=== PATIENT | female | born 1965 | race Caucasian/White ===

== ENCOUNTER 2016-08-03 09:09 | Emergency (ER) ==
[2016-08-03 09:22] VITALS: BP 132/76; TEMP 97.5; BMI 41.7
--- NOTE | 2016-08-03 09:51 | DI ---
EXAM: Three views of the right ankle. History: Right ankle trauma. Findings: No acute fracture or dislocation. Subcutaneous edema at the ankle. Atherosclerotic vasc ular calcifications. Dorsal soft tissue swelling over the forefoot. Enthesiopathy at the insertion of the Achilles tendon. Mild polyarticular joint space narrowing. Impression: No acute osseous abnormality. Other findings as detailed above.
--- NOTE | 2016-08-03 09:52 | DI ---
EXAM: Four views of the left knee. History: Left knee pain and trauma. Findings: No acute fracture or dislocation. Moderate to severe narrowing of the medial compartment . Moderate narrowing of the patellofemoral compartment. Mild to moderate narrowing of the lateral compartment. There are osteophytes. Impression: No acute osseous abnormality. Osteoarthritis.
--- NOTE | 2016-08-03 09:54 | DI ---
EXAM: Three views of the right foot. History: Right foot pain and trauma. Findings: No acute fracture or dislocation. Subcutaneous edema. Enthesiopathy at the insertion of the Achilles tendon. Mild polyarticular joint space narrowing. Os naviculare. Impression: No acute osseous abnormality.
--- NOTE | 2016-08-03 10:01 | ED.PDOC ---
General ED Provider: Dr. RUFINO SIU JR Chief Complaint: Fall Stated Complaint: left knee gave out causing fall indoors--did not strike head with fall--caught self with arms outstretched--has pain ro right ankle and left knee. [ End ] Time Seen by Physician: 09:00 Mode of Arrival: Walk-In Information Source: Patient Exam Limitations: No limitations Primary Care Provider: MARBIN BRADFORD Nursing and Triage Documentation Reviewed and Agree: No Review of Systems - Review Of Systems Constitutional: Reports: No symptoms Eyes: Reports: No symptoms Ears, Nose, Mouth, Throat: Reports: No symptoms Respiratory: Reports: No symptoms Cardiac: Reports: No symptoms GI: Reports: No symptoms : Reports: No symptoms Musculoskeletal: Reports: Joint pain Skin: Reports: No symptoms Neurological: Reports: Other Endocrine: Reports: No symptoms Hematologic/Lymphatic: Reports: No symptoms All Other Systems: Other Past Medical History - Past Medical History Previously Healthy: No Endocrine: Reports: DM 2, Dyslipidemia Cardiovascular: Reports: Hypertension Respiratory: Reports: None Hematological: Reports: None Gastrointestinal: Reports: None Genitourinary: Reports: None Neuro/Psych: Reports: None Musculoskeletal: Reports: Joint Pain Cancer: Reports: None Last Menstrual Period: menopause - Surgical History General Surgical History: Reports: Unknown - Family History Family History: Reports: Unknown - Social History Smoking Status: Current every day smoker Hx Substance Use: No Alcohol Screening: None Physical Exam - Physical Exam Appearance: Well-appearing, Obese Pain Distress: Moderate Neck: Supple Respiratory: Airway patent Musculoskeletal: Normal strength, ROM intact, Edema (right ankle consistent with trauma) Skin: Warm, Dry (note dorsal turquoise color denies ink) Neurological: Sensation intact, Motor intact, Reflexes intact, Cranial nerves intact, Alert, Oriented Psychiatric: Affect appropriate, Mood appropriate Critical Care Note - Critical Care Note Total Time (mins): 0 Course - Course Orders, Labs, Meds: Orders Category Date Time Status CRUTCHES [ED CRUTCHES] .ONCE EMERGENCY 08/03/16 10:01 Active ED KOKI WRAP .ONCE EMERGENCY 08/03/16 10:01 Active ANKLE, RIGHT MIN 3 VIEWS Stat RADS 08/03/16 09:16 Completed FOOT, RIGHT 3 VIEWS Stat RADS 08/03/16 09:16 Completed KNEE, LEFT 4 VIEWS Stat RADS 08/03/16 09:16 Completed Vital Signs: Temp Pulse Resp BP Pulse Ox 08/03/16 09:10 97.5 F L 80 16 132/76 96 Departure - Departure Time of Disposition: 09:59 Disposition: HOME SELF-CARE Discharge Problem: Moderate ankle sprain, Contusion of knee, left Instructions: Ankle Sprain (ED), Knee Pain (ED) Condition: Good Pt referred to PMD for follow-up: Yes Additional Instructions: limit weight on ankle for three days ice 20 minutes three times a day koki for comfort elevate 2 hours twice a day Prescriptions: Ibuprofen [Motrin] 600 mg PO QID PRN #30 tablet PRN Reason: PAIN Allergies/Adverse Reactions: Allergies haloperidol [From Haldol] Adverse Reaction (Verified 08/03/16 09:19) haloperidol lactate [From Haldol] Adverse Reaction (Verified 08/03/16 09:19) Home Medications: Ambulatory Orders Albuterol Sulfate [Proair Hfa] 2 puff IH Q4H 01/06/15 Aspirin [Aspirin EC] 81 mg PO DAILYWM 01/06/15 Azelastine HCl [Astelin 0.1%] 1 spray NS BID 01/06/15 Calcium Carbonate/Vitamin D3 [Calcium 600 + D Tablet] 1 each PO BID 01/06/15 Divalproex Sodium 500 mg PO DAILY 01/06/15 Divalproex Sodium [Depakote] 1,000 mg PO BEDTIME 01/06/15 Furosemide [Lasix Tab] 20 mg PO BIDAC 01/06/15 Insulin Regular, Human [Humulin R] 10 unit SUBCUT DIRECTED 01/06/15 Risperidone [Risperdal] 4 mg PO BEDTIME 01/06/15 Tiotropium [place] [Spiriva Respimat] 4 gm IH DIRECTED 01/06/15 Lorazepam [Ativan] 0.5 mg PO TID #90 09/28/15 Benztropine Mesylate 2 mg PO DAILY #30 12/21/15 Enalapril Maleate [Vasotec] 2.5 mg PO DAILY 12/21/15 Gabapentin [Neurontin] 100 mg PO BID 12/21/15 Pantoprazole Sodium [Protonix] 40 mg PO DAILY 12/21/15 Potassium Chloride 10 meq PO BID 12/21/15 Simvastatin [Zocor] 20 mg PO BEDTIME 12/21/15 Ibuprofen [Motrin] 600 mg PO QID PRN #30 tablet 08/03/16
== END 2016-08-03 10:15 | disposition home or self-care (01) ==
LOC: ED 09:09
DX: S93.401A Sprain of unspecified ligament of right ankle, initial encounter (principal); S80.02XA Contusion of left knee, initial encounter; W19.XXXA Unspecified fall, initial encounter; F17.210 Nicotine dependence, cigarettes, uncomplicated
CPT/HCPCS: 99283

== ENCOUNTER 2016-11-29 10:00 | Outpatient (RCR) | END 2016-11-30 | LOC: NEWBEG 10:00 | PROVIDERS: ATTEND Family Medicine | DX: F43.10 Post-traumatic stress disorder, unspecified (principal); F25.9 Schizoaffective disorder, unspecified; F41.9 Anxiety disorder, unspecified | CPT/HCPCS: 90792; 90853; 99214 ==

== ENCOUNTER 2017-01-29 10:00 | Outpatient (RCR) | END 2017-01-30 | LOC: NEWBEG 10:00 | PROVIDERS: ATTEND Psychiatry & Neurology Psychiatry | DX: F41.9 Anxiety disorder, unspecified (principal); F43.10 Post-traumatic stress disorder, unspecified; F25.9 Schizoaffective disorder, unspecified | CPT/HCPCS: 90832; 90853; 99213 ==

== ENCOUNTER 2017-02-28 10:00 | Outpatient (RCR) | END 2017-03-02 | LOC: NEWBEG 10:00 | PROVIDERS: ATTEND Psychiatry & Neurology Psychiatry | DX: F41.9 Anxiety disorder, unspecified (principal); F43.10 Post-traumatic stress disorder, unspecified; F25.9 Schizoaffective disorder, unspecified | CPT/HCPCS: 90832; 90853; 99213 ==

== ENCOUNTER 2017-03-04 12:32 | Outpatient (CLI) ==
--- NOTE | 2017-03-06 13:56 | HOLTER ---
PATIENT INFORMATION AND COMMENTS Attending Physician: MARBIN BRADFORD Indications: EPISODE OF CHANGE IN SPEECH, CVA __ Patient Medications: ZOCOR, LASIX, PROTONIX, VASOTEC, POTASSIUM, COGENTIN, DEPAKOTE, CLONIDINE, MOBIC, ATIVAN, RISPERDAL, CALCIUM __ Pre-procedure Summary: Protocol: Standard Heart Rate Started: 03/04/17 1305 Minimum: 55 BPM Weight: 240 LBS Ended: 03/05/17 1305 Maximum: 130 BPM Height: 62" Duration: 24 HOURS Average: 85 BPM _ INTERPRETATIONS/OBSERVATIONS: 1. BASIC RHYTHM: SINUS, RATE 55 BPM TO 120 BPM, AVERAGE 85 BPM 2. RARE PAC'S AND PVC'S 3. NO ST-T WAVE CHANGES FROM BASELINE 4. NO CORRELATION WITH ACTIVITY LOG MTDD
== END 2017-03-04 12:33 | disposition home or self-care (01) ==
LOC: CAR 12:32
PROVIDERS: ATTEND Family Medicine
DX: R47.89 Other speech disturbances (principal)
CPT/HCPCS: 93227

== ENCOUNTER 2017-03-28 10:00 | Outpatient (RCR) | payer OTHER | END 2017-04-02 | LOC: NEWBEG 10:00 | PROVIDERS: ATTEND Psychiatry & Neurology Psychiatry | DX: F41.9 Anxiety disorder, unspecified (principal); F43.10 Post-traumatic stress disorder, unspecified; F25.9 Schizoaffective disorder, unspecified | CPT/HCPCS: 90853; 99213 ==

== ENCOUNTER 2017-04-28 10:00 | Outpatient (RCR) | payer OTHER | END 2017-04-30 | LOC: NEWBEG 10:00 | PROVIDERS: ATTEND Psychiatry & Neurology Psychiatry | DX: F41.9 Anxiety disorder, unspecified (principal); F43.10 Post-traumatic stress disorder, unspecified; F25.9 Schizoaffective disorder, unspecified | CPT/HCPCS: 90837; 90853; 99213 ==

== ENCOUNTER 2017-05-30 10:00 | Outpatient (RCR) | END 2017-05-31 | LOC: NEWBEG 10:00 | PROVIDERS: ATTEND Psychiatry & Neurology Psychiatry | DX: F41.9 Anxiety disorder, unspecified (principal); F43.10 Post-traumatic stress disorder, unspecified; F25.9 Schizoaffective disorder, unspecified | CPT/HCPCS: 90832; 90837; 90853; 99213 ==

== ENCOUNTER 2017-06-20 10:00 | Outpatient (RCR) | END 2017-06-30 23:59 | LOC: NEWBEG 10:00 | PROVIDERS: ATTEND Psychiatry & Neurology Psychiatry | DX: F41.9 Anxiety disorder, unspecified (principal); F43.10 Post-traumatic stress disorder, unspecified; F25.9 Schizoaffective disorder, unspecified | CPT/HCPCS: 90837; 90853; 99213 ==

== ENCOUNTER 2017-07-29 11:00 | Outpatient (RCR) | END 2017-07-31 23:59 | LOC: NEWBEG 11:00 | PROVIDERS: ATTEND Psychiatry & Neurology Psychiatry | DX: F41.9 Anxiety disorder, unspecified (principal); F43.10 Post-traumatic stress disorder, unspecified; F25.9 Schizoaffective disorder, unspecified | CPT/HCPCS: 90837; 90853; 99213 ==

== ENCOUNTER 2017-08-26 11:00 | Outpatient (RCR) | END 2017-08-30 23:59 | LOC: NEWBEG 11:00 | PROVIDERS: ATTEND Psychiatry & Neurology Psychiatry | DX: F41.9 Anxiety disorder, unspecified (principal); F43.10 Post-traumatic stress disorder, unspecified; F25.9 Schizoaffective disorder, unspecified | CPT/HCPCS: 90834; 90837; 99213 ==

== ENCOUNTER 2017-09-04 12:40 | Outpatient (CLI) | payer OTHER | END 2017-09-04 12:41 | disposition home or self-care (01) | LOC: LAB 12:40 | PROVIDERS: ATTEND Internal Medicine Gastroenterology | DX: D64.9 Anemia, unspecified (principal) | CPT/HCPCS: 36415; 82728; 83540; 83550; 83921; 85025 ==

== ENCOUNTER 2017-09-16 15:50 | Outpatient (CLI) | payer OTHER | END 2017-09-16 15:51 | disposition home or self-care (01) | LOC: CAR 15:50 | PROVIDERS: ATTEND Family Medicine | DX: G47.33 Obstructive sleep apnea (adult) (pediatric) (principal) | CPT/HCPCS: 90834; 95811 ==

== ENCOUNTER 2017-09-23 11:00 | Outpatient (RCR) | END 2017-09-30 23:59 | LOC: NEWBEG 11:00 | PROVIDERS: ATTEND Psychiatry & Neurology Psychiatry | DX: F41.9 Anxiety disorder, unspecified (principal); F43.10 Post-traumatic stress disorder, unspecified; F25.9 Schizoaffective disorder, unspecified | CPT/HCPCS: 90834; 90837; 99213 ==

== ENCOUNTER 2017-10-31 10:45 | Outpatient (RCR) | END 2017-10-31 23:59 | LOC: NEWBEG 10:45 | PROVIDERS: ATTEND Psychiatry & Neurology Psychiatry | DX: F41.9 Anxiety disorder, unspecified (principal); F43.10 Post-traumatic stress disorder, unspecified; F25.9 Schizoaffective disorder, unspecified | CPT/HCPCS: 90832; 90837; 99213 ==

== ENCOUNTER 2017-11-28 10:15 | Outpatient (RCR) | payer OTHER | END 2017-11-30 23:59 | LOC: NEWBEG 10:15 | PROVIDERS: ATTEND Psychiatry & Neurology Psychiatry | DX: F41.9 Anxiety disorder, unspecified (principal); F43.10 Post-traumatic stress disorder, unspecified; F25.9 Schizoaffective disorder, unspecified | CPT/HCPCS: 90834; 90837; 99213 ==

== ENCOUNTER 2018-04-23 10:28 | Outpatient (CLI) | payer OTHER ==
[2018-01-27 14:41] VITALS: BMI 46.6
== END 2018-04-23 10:29 | disposition home or self-care (01) ==
LOC: LAB 10:28
PROVIDERS: ATTEND Psychiatry & Neurology Psychiatry
DX: F22 Delusional disorders (principal); F43.10 Post-traumatic stress disorder, unspecified
CPT/HCPCS: 36415; 80164; 84146

== ENCOUNTER 2018-07-01 08:50 | Outpatient (CLI) ==
[2018-01-27 14:41] VITALS: BMI 46.6
== END 2018-07-01 08:51 | disposition home or self-care (01) ==
LOC: CAR 08:50
PROVIDERS: ATTEND Family Medicine
DX: R06.02 Shortness of breath (principal)
CPT/HCPCS: 94761

== ENCOUNTER 2018-07-16 06:37 | Outpatient (CLI) ==
[2018-01-27 14:41] VITALS: BMI 46.6
--- NOTE | 2018-07-17 08:45 | STRESSECHO ---
Date of Test: 07/16/18 Ordering Physician: DR. MARBIN BRADFORD Occupation: RETIRED/DISABLED Reason for Exam: SOB, HTN Smoking History: 1PK/DAY Height: 62" Weight : 255 LBS Current Medications: PANTOPRAZOLE, FUROSEMIDE, RISPERIDONE, SIMVASTATIN, POTASSIUM, CLONIDINE, LORAZEPAM, COGENTIN Resting EKG: SINUS RHYTHM/ NO ACUTE CHANGES Target Heart Rate: 141/166 S-T SEGMENT STAGE MPH/GRADE HEART RATE BPM BLOOD PRESSURE MMHG RHYTHM +/- ELEVATION DEPRESSION SYMPTOMS AT REST 62 BPM 140/80 MMHG SR X NONE 1 1.7/10% 2 2.5/12% 3 3.4/14% 4 4.2/16% 5 5.0/18% Immediately After 145 BPM 180/54 MMHG SR X KNEE PAIN/SOB Minutes Post Exercise 7:00 89 BPM 146/82 MMHG SR X NONE Minutes Post Exercise DURATION OF EXERCISE: 2:21 MAXIMUM HEART RATE REACHED: 145 BPM REASON FOR TERMINATION: KNEE PAIN/ SHORT OF BREATH 98% OXYGEN SATURATION WITH EXERCISE ON ROOM AIR METS 4.6 INTERPRETATION: 1. NO EVIDENCE OF ISCHEMIA BY ST-T WAVE 2. NO CHEST PAIN OR CHEST DISCOMFORT 3. NO ARRHYTHMIAS 4. BLOOD PRESSURE RESPONSE: MILD SYSTOLIC HYPERTENSION WITH EXERCISE MILD INFERIOR POST WALL HYPOKINETIC ATR REST/ IMPROVED LEFT VENTRICULAR CONTRACTILITY WITH EXERCISE MTDD
--- NOTE | 2018-07-17 08:48 | ECHOSTRESS ---
Date of Exam: 07/16/18 Ordering Physician: DR. MARBIN BRADFORD Reason for Echo: SOB, HTN, STRESS TEST--NO ISCHEMIA M-Mode Normal Adult Results LV Dimensions Normal Adult Results AoV Opening excursions >1.6 LVEDD-base- 3.5-5.8 Ao root dimensions 2.0-3.7 LVESD-base- 3.1-4.6 L. Atrium dimensions 1.9-3.8 Post. Wall thickness 0.8-1.1 IV septum (thickness) 0.7-1.2 Post. Wall excursion 0.72-1.3 Septal motion Systolic motion R. Ventricular cavity 1.5-2.0 LVEF 60% Paradoxical septal wall motion 2-D: MILD INFERIOR POST HYPOKINETIC AT REST WITH IMPROVED LEFT VENTRICULAR CONTRACTILITY WITH EXERCISE M-MODE: MV: AV: TV: PV: CHAMBER SIZE: WALL MOTION: MILD INFERIOR POST HYPOKINETIC AT REST WITH IMPROVED LEFT VENTRICULAR CONTRACTILITY WITH EXERCISE PERICARDIUM: INTERPRETATION: 1. MILD INFERIOR POST HYPOKINETIC AT REST WITH IMPROVED LEFT VENTRICULAR CONTRACTILITY WITH EXERCISE MTDD
--- NOTE | 2018-07-17 10:14 | ECHO2D ---
Date of Exam: 07/16/18 Ordering Physician: DR. MARBIN BRADFORD Room #: OP Reason for Echo: SOB, HTN M-Mode Normal Adult Results LV Dimensions Normal Adult Results AoV Opening excursions >1.6 >1.6 LVEDD-base- 3.5-5.8 5.6 Ao root dimensions 2.0-3.7 3.2 LVESD-base- 3.1-4.6 L. Atrium dimensions 1.9-3.8 3.9 Post. Wall thickness 0.8-1.1 1.1 IV septum (thickness) 0.7-1.2 1.2 Post. Wall excursion 0.72-1.3 0.5 Septal motion NORMAL Systolic motion R. Ventricular cavity 1.5-2.0 NORMAL LVEF 60% 46% Paradoxical septal wall motion NORMAL 2-D : 2-D M Mode Echocardiogram was performed using apical four chamber and left parasternal long and short axis views. Mitral, tricuspid and aortic valves appear to be normal. Contractility of the left ventricle seems to be normal, so is the cavity size. Left atrial cavity size and aortic root appear to be normal. There is no pericardial effusion. There is no thrombus noted in the left ventricular or left aortic cavity. No mitral valve prolapse noted. HYPOKINETIC INFERIOR POST WALL M-MODE: MV: NORMAL AV: NORMAL TV: NORMAL PV: CHAMBER SIZE: NORMAL WALL MOTION: HYPOKINETIC INFERIOR POST WALL PERICARDIUM: NORMAL INTERPRETATION: 1. BORDERLINE LEFT VENTRICULAR HYPERTROPHY 2. BORDERLINE LEFT VENTRICLE CAVITY enlargement 3. HYPOKINETIC INFERIOR POST WALL EJECTION FRACTION 45% 4. NORMAL VALVES MTDD
== END 2018-07-16 06:38 | disposition home or self-care (01) ==
LOC: CAR 06:37
PROVIDERS: ATTEND Family Medicine
DX: R06.02 Shortness of breath (principal); I10 Essential (primary) hypertension; R06.2 Wheezing

== ENCOUNTER 2018-10-20 11:00 | Outpatient (RCR) | payer OTHER ==
[2018-09-10 13:14] VITALS: BMI 47.3
== END 2018-10-31 23:59 ==
LOC: NEWBEG 11:00
PROVIDERS: ATTEND Psychiatry & Neurology Psychiatry
DX: F25.1 Schizoaffective disorder, depressive type (principal); F41.9 Anxiety disorder, unspecified; F43.10 Post-traumatic stress disorder, unspecified
CPT/HCPCS: 90834; 90837; 99213